=== PATIENT | female | born 2000 | race Caucasian/White ===

== ENCOUNTER 2018-09-22 16:01 | Emergency (ER) | payer BC, OTHER ==
[~2018-09-22] VITALS: Ht 152.4 cm; Wt 51.0 kg
[2018-09-22 16:20] VITALS: Ht 152.4 cm; Wt 51.0 kg
[2018-09-22] MEDS ORDERED: DEXAMETHASONE 10 MG/ML 1 ML INJ PO ONE (17:00)
[2018-09-22] MEDS ORDERED: DEXAMETHASONE 10 MG/ML 1 ML INJ ONE (17:20)
--- NOTE | 2018-09-22 17:59 | ERD ---
ER Documentation Chief Complaint Chief Complaint pt is bib family with c/o cough, sore throat feeling sob since yesterday HPI 18-year-old female brought in by mother complaining of episodes of shortness of breath. She also has cough and sore throat. No fever. This is been going on since 2 days ago. No nausea or vomiting or diarrhea. No urinary symptoms. ROS All systems reviewed and are negative except as per history of present illness. Allergies Allergies: Coded Allergies: No Known Allergy (Unverified , 09/22/18) PMhx/Soc Medical and Surgical Hx: pt denies Medical Hx, pt denies Surgical Hx Hx Alcohol Use: No Hx Substance Use: No Hx Tobacco Use: No Smoking Status: Never smoker FmHx Family History: No diabetes Physical Exam Vitals Physical Exam INITIAL VITAL SIGNS: Reviewed by me GENERAL: Awake, alert and oriented x 4, well appearing, nontoxic, speaking in full sentences. No acute distress HEAD: Atraumatic NECK: Supple. No masses. Full range of motion. No meningismus. No midline tenderness. EYES: EOMI. PERRL. THROAT: No tonilar erythema or edema. No exudates. Uvula midline. No kissing tonsils. RESPIRATORY: Clear to auscultation bilaterally. Symmetric chest wall rise. No wheezing or rales. No accessory muscle use. CV: Regular rate and rhythm. No murmurs, rubs, or gallops. ABDOMEN: Soft, non-distended. Nontender. Negative Zaleski. Negative McBurneys point tenderness. No CVA tenderness bilaterally. No guarding. No rebound. Results 24 hrs Laboratory Tests Test 09/22/18 17:03 09/22/18 17:06 09/22/18 17:11 09/23/18 12:18 Urine Color STRAW Urine Clarity SLIGHTLY CLOUDY Urine pH 7.0 Urine Specific 1.004 [place] Urine Ketones NEGATIVE mg/dL Urine Nitrite NEGATIVE mg/dL Urine Bilirubin NEGATIVE mg/dL Urine Urobilinogen NEGATIVE mg/dL Urine Leukocyte TRACE David/ul Esterase Urine Microscopic 1 /HPF RBC Urine Microscopic 3 /HPF WBC Urine Squamous FEW /HPF Epithelial Cells Urine Bacteria MODERATE /HPF Urine Hemoglobin NEGATIVE mg/dL Urine Glucose NEGATIVE mg/dL Urine Total NEGATIVE mg/dl Protein Urine NEGATIVE Test POC Beta HCG, NEGATIVE Qualitative White Blood Count 6.6 10^3/ul Red Blood Count 4.69 10^6/ul Hemoglobin 13.2 g/dl Hematocrit 37.8 % Mean Corpuscular 80.6 fl Volume Mean Corpuscular 28.1 pg Hemoglobin Mean Corpuscular 34.9 g/dl Hemoglobin Concent Red Cell 12.9 % Distribution Width Platelet Count 235 10^3/UL Mean Platelet 11.7 fl Volume Neutrophils % 62.7 % Lymphocytes % 28.5 % Monocytes % 7.1 % Eosinophils % 1.1 % Basophils % 0.3 % Nucleated Red 0.0 /100WBC Blood Cells % Neutrophils # 4.2 10^3/ul Lymphocytes # 1.9 10^3/ul Monocytes # 0.5 10^3/ul Eosinophils # 0.1 10^3/ul Basophils # 0.0 10^3/ul Nucleated Red 0.0 10^3/ul Blood Cells # Sodium Level 139 mmol/L Potassium Level 3.9 mmol/L Chloride Level 106 mmol/L Carbon Dioxide 22 mmol/L Level Anion Gap 11 Blood Urea 13 mg/dl Nitrogen Creatinine 0.65 mg/dl Est Glomerular > 60 mL/min Filtrat Rate mL/min Glucose Level 97 mg/dl Calcium Level 9.9 mg/dl Total Bilirubin 0.3 mg/dl Direct Bilirubin 0.00 mg/dl Indirect Bilirubin 0.3 mg/dl Aspartate Amino 22 IU/L Transf (AST/SGOT) Alanine 23 IU/L Aminotransferase ( ALT/SGPT) Alkaline 55 IU/L Phosphatase Total Protein 8.0 g/dl Albumin 4.6 g/dl Globulin 3.40 g/dl Albumin/Globulin 1.35 Ratio Lipase 76 U/L Lab Scanned Report LAB [id number] Current Medications Medications Dose Sig/Rigo Start Time Status Last (Trade) Ordered Route PRN Stop Time Admin Dose Reason Admin 10 mg ONCE ONCE 09/22/18 DC 09/22/18 Dexamethasone PO 17:00 17:22 (Decadron) 09/22/18 17:01 10 mg STK-MED 09/22/18 DC Dexamethasone ONCE .ROUTE 17:20 (Decadron) 09/25/18 16:44 Procedures/MDM Patient has shortness of breath. Vitals are normal she is well-appearing in no distress. Lungs are clear. Decadron given. Patient felt much better after the Decadron. She will be discharged with an albuterol inhaler pending normal lab results with are still pending at the end of my shift. Departure Diagnosis: Primary Impression: Shortness of breath Condition: Stable CHAVA HEATH PA-C Sep 22, 2018 17:59
[2018-09-22 19:11] VITALS: BP 118/78; PULSE 78; RESP 20
== END 2018-09-22 19:13 | disposition home or self-care (01) ==
LOC: FTE 16:01
DX: R06.02 Shortness of breath (principal)
CPT/HCPCS: 80053; 81001; 81025; 83690; 84703; 85025; J1100; 99283